=== PATIENT | female | born 1980 | race Caucasian/White ===

== ENCOUNTER 2017-06-05 21:38 | Emergency (ER) | payer MEDICAID ==
[2017-06-05] MEDS ORDERED: NS 1,000 ML IV ONE ×2 (21:45→22:31)
--- NOTE | 2017-06-05 21:49 | EDPHY ---
H & P Source: Patient, EMS Exam Limitations: No limitations HPI/ROS: CHIEF COMPLAINT: Anxiety, chest pain HISTORY OF PRESENT ILLNESS: Patient arrives by EMS and is seen at time of arrival. She complains of chest pain that started at 5:30 p.m.. This was with onset of an anxiety attack. She felt tachycardic, diaphoretic, spasms of the hands, tingling of the hands and around her lips. No shortness of breath. No recent fever or illness. No cough. No abdominal complaints. She says this is similar to previous incidence of anxiety reactions and sinus tachycardia. Symptoms lasted more than 2 hours, thus she was concerned and contacted EMS. Symptoms started to improve as they helped slow her breathing rate down and administered IV fluid. At time of examination she is feeling significantly better. She has minimal chest pain at this time. She is currently homeless. She has been seen by Cardiology and [facility] in the past. No other associated complaints or modifying factors. REVIEW OF SYSTEMS: Ten systems reviewed and are negative unless otherwise noted in the HPI PAST MEDICAL HISTORY: Sinus tachycardia, anxiety SOCIAL HISTORY: Nonsmoker. Currently homeless. FAMILY HISTORY: Noncontributory EXAMINATION General Appearance: Alert, no distress Head: normocephalic, atraumatic Eyes: Pupils equal and round, no conjunctival pallor or injection ENT, Mouth: Mucous membranes moist Neck: Normal inspection, supple, non-tender Respiratory: Lungs are clear to auscultation Cardiovascular: Tachycardic rate with regular rhythm. No murmur. Pulses intact distally in symmetrically. Gastrointestinal: Abdomen is soft and nontender Back: non-tender, no bony abnormalities Neurological: GCS 15. Cranial nerves 2-12 grossly intact. A&O, nonfocal, normal gait Skin: Warm and dry, no rash. No petechiae purpura. No lacerations or abrasions. Extremities: Nontender, no pedal edema Psychiatric: Mood and affect normal DIFFERENTIAL DIAGNOSES: Including but not limited to anxiety reaction, stress reaction, sinus tachycardia, ACS, pneumonia, bronchitis, dehydration, P MDM: 9:45 p.m. Reports of anxiety attack and chest pain. Chest pain did start at 5:30 p.m. and has been present ever since. Her pain is minimal at time of evaluation. She is mildly tachycardic but in no acute distress and otherwise hemodynamically stable. EKG and cardiac labs have been ordered. Suspect this is truly anxiety and the patient agrees with this. 10:30 p.m. Patient remains awake alert no acute distress. She continues to feel better. She remains mildly tachycardic at 105 beats per minute. This is after 1 L of fluid. Laboratory studies thus far negative with mild leukocytosis. Troponin is pending. I have ordered a D-dimer due to the tachycardia. 10:39 p.m. I have re-evaluated the patient. She remains mildly tachycardic but is feeling much better. She still feels anxious and has minimal chest pain. Chest x-ray is unremarkable. Troponin is negative. D-dimer is pending. I have ordered a L fluid and Ativan p.o.. 11:08 p.m. I have re-evaluated the patient. She continues to feel better. She has no chest pain at this time. She is resting comfortably and feeling minimally anxious. D-dimer is also negative. Troponin is sensitive as it was drawn greater than 4 hours post onset of pain. Clinically she fits the picture of anxiety. She also agrees with this. She will be discharged home stable condition. She will follow up with her established primary care physician and [facility] and contact [facility] as well. [facility] SUPERVISION: Patient was evaluated in conjunction with the supervising physician. Please see their note for details. (Danielito Ha) Constitutional: Initial Vital Signs Temperature (C) 36.6 C 06/05/17 21:50 Heart Rate 97 06/05/17 21:50 Respiratory Rate 16 06/05/17 21:50 Blood Pressure 117/79 06/05/17 21:50 O2 Sat (%) 99 06/05/17 21:50 O2 Delivery Mode Room Air Allergies/Adverse Reactions: atenolol Allergy (Verified 06/05/17 21:48) hydromorphone [From Dilaudid] Allergy (Verified 06/05/17 21:48) sulfamethoxazole [From Bactrim] Allergy (Verified 06/05/17 21:48) trimethoprim [From Bactrim] Allergy (Verified 06/05/17 21:48) Home Medications: Medication Instructions Recorded Hydroxyzine HCl 06/05/17 Ondansetron Odt [Zofran Odt 4 mg 4 mg PO Q4 PRN #10 tab 06/05/17 (*)] Promethazine HCl 06/05/17 Propranolol HCl 06/05/17 Medical Decision Making - Diagnostics EKG Interpretation: EKG: Complete interpretation has been separately recorded in the [facility] archive. Summary impression: Normal sinus rhythm (Marly Holliday) Imaging Results: Imaging Impressions Chest X-Ray 06/05/17 21:45 Impression: Normal chest x-ray. Other Provider: PHYSICIAN DOCUMENTATION: The patient was evaluated and managed by the [facility]. My co- signature indicates that I have reviewed this chart and I agree with the findings and plan of care as documented. I am the secondary supervising physician. (Marly Holliday) - Data Points Laboratory Results: Laboratory Results 06/05/17 21:59 06/05/17 21:59 06/05/17 06/05/17 06/05/17 21:59 21:59 21:59 WBC RBC Hgb Hct MCV MCH MCHC RDW Plt Count MPV Neut % (Auto) Lymph % (Auto) [place] % (Auto) Eos % (Auto) Baso % (Auto) Nucleat RBC Rel Count Absolute Neuts (auto) Absolute Lymphs (auto) Absolute Monos (auto) Absolute Eos (auto) Absolute Basos (auto) Absolute Nucleated RBC Immature Gran % Immature Gran # D-Dimer 0.28 ug/mLFEU ug/mLFEU (0.00-0.50) Sodium 141 mEq/L mEq/L (134-144) Potassium 4.0 mEq/L mEq/L (3.5-5.2) Chloride 106 mEq/L mEq/L (97-110) Carbon Dioxide 20 mEq/l L mEq/l (22-31) Anion Gap 15 mEq/L mEq/L (8-16) BUN 13 mg/dL mg/dL (7-23) Creatinine 0.8 mg/dL mg/dL (0.6-1.0) Estimated GFR > 60 Glucose 126 mg/dL H mg/dL (70-100) Calcium 9.5 mg/dL mg/dL (8.5-10.4) Troponin I < 0.012 ng/mL ng/mL (0-0.034) Lipase 208.0 IU/L IU/L (23-300) Beta HCG, Qual NEGATIVE 06/05/17 21:59 WBC 15.53 10^3/uL H 10^3/uL (3.80-9.50) RBC 5.01 10^6/uL 10^6/uL (4.18-5.33) Hgb 14.7 g/dL g/dL (12.6-16.3) Hct 43.1 % % (38.0-47.0) MCV 86.0 fL fL (81.5-99.8) MCH 29.3 pg pg (27.9-34.1) MCHC 34.1 g/dL g/dL (32.4-36.7) RDW 13.2 % % (11.5-15.2) Plt Count 395 10^3/uL 10^3/uL (150-400) MPV 9.4 fL fL (8.7-11.7) Neut % (Auto) 80.0 % H % (39.3-74.2) Lymph % (Auto) 12.2 % L % (15.0-45.0) [place] % (Auto) 6.2 % % (4.5-13.0) Eos % (Auto) 0.8 % % (0.6-7.6) Baso % (Auto) 0.3 % % (0.3-1.7) Nucleat RBC Rel Count 0.0 % % (0.0-0.2) Absolute Neuts (auto) 12.42 10^3/uL H 10^3/uL (1.70-6.50) Absolute Lymphs (auto) 1.90 10^3/uL 10^3/uL (1.00-3.00) Absolute Monos (auto) 0.97 10^3/uL H 10^3/uL (0.30-0.80) Absolute Eos (auto) 0.12 10^3/uL 10^3/uL (0.03-0.40) Absolute Basos (auto) 0.04 10^3/uL 10^3/uL (0.02-0.10) Absolute Nucleated RBC 0.00 10^3/uL 10^3/uL (0-0.01) Immature Gran % 0.5 % % (0.0-1.1) Immature Gran # 0.08 10^3/uL 10^3/uL (0.00-0.10) D-Dimer Sodium Potassium Chloride Carbon Dioxide Anion Gap BUN Creatinine Estimated GFR Glucose Calcium Troponin I Lipase Beta HCG, Qual Medications Given: Discontinued Medications Sodium Chloride (Ns) 1,000 mls @ 0 mls/hr IV ONCE ONE; Wide Open PRN Reason: Protocol Stop: 06/05/17 21:46 Last Admin: 06/05/17 22:05 Dose: 1,000 mls Sodium Chloride (Ns) 1,000 mls @ 0 mls/hr IV ONCE ONE; Wide Open PRN Reason: Protocol Stop: 06/05/17 22:32 Last Admin: 06/05/17 23:14 Dose: 1,000 mls Lorazepam (Ativan) 1 mg PO EDNOW ONE Stop: 06/05/17 22:40 Last Admin: 06/05/17 23:14 Dose: 1 mg Departure - Departure Disposition: Home, Routine, Self-Care Clinical Impression: Anxiety, Chest pain Condition: Good Instructions: Chest Pain (ED), Anxiety (ED), Anxiolysis in Adults (ED) Additional Instructions: 1. Contact primary care physician for follow-up this week 2. Return to the ER for any return of chest pain Referrals: Patient,NotPresent [Unknown] - As per Instructions [facility] [Clinic] - As per Instructions Mary Wilkes MD [Doctor of Osteopathy] - As per Instructions Prescriptions: Ondansetron Odt [Zofran Odt 4 mg (*)] 4 mg PO Q4 PRN #10 tab PRN Reason: Nausea/Vomiting, Can'T Take Po
[2017-06-05 21:54] VITALS: RESP 16
--- NOTE | 2017-06-05 21:54 | CPEKG ---
Heart Rate: 105 RR Interval: 571 P-R Interval: 136 QRSD Interval: 78 QT Interval: 356 QTC Interval: 471 P [place]: 49 QRS [place]: 45 T Wave [place]: -13 EKG Severity - BORDERLINE ECG - EKG Impression: SINUS TACHYCARDIA EKG Impression: INFERIOR Q WAVES, PROBABLY NORMAL VARIATION EKG Impression: BORDERLINE T ABNORMALITIES, INFERIOR LEADS Electronically Signed By: Chris Gomez 06-Jun-2017 07:47:19
[2017-06-05 22:05] LABS: % IMMATURE GRANULYOCYTES 0.5 % (0.0-1.1); ABSOLUTE IMMATURE GRANULOCYTES 0.08 10^3/uL (0.00-0.10); ADD DIFF? NO; ADD MORPH? NO; ADD SCAN? NO; ATYPICAL LYMPHOCYTE FLAG 10 (0-99); FRAGMENT RBC FLAG 0 (0-99); HEMATOCRIT 43.1 % (38.0-47.0); HEMOGLOBIN 14.7 g/dL (12.6-16.3); LEFT SHIFT FLG 0 (0-99); LIPEMIA HEMOLYSIS FLAG 90 (0-99); MEAN CELL HEMOGLOBIN 29.3 pg (27.9-34.1); MEAN CELL HEMOGLOBIN CONCENTR. 34.1 g/dL (32.4-36.7); MEAN PLATELET VOLUME 9.4 fL (8.7-11.7); PLATELET CLUMPS FLAG 0 (0-99); PLATELET COUNT 395 10^3/uL (150-400); RED BLOOD CELL COUNT 5.01 10^6/uL (4.18-5.33); RED CELL DISTRIBUTION WIDTH 13.2 % (11.5-15.2)
[2017-06-05 22:23] LABS: ANION GAP 15 mEq/L (8-16); CALCIUM 9.5 mg/dL (8.5-10.4); CARBON DIOXIDE 20 mEq/l (22-31); CHLORIDE 106 mEq/L (97-110); CREATININE 0.8 mg/dL (0.6-1.0); GLOMERULAR FILTRATION RATE > 60; GLUCOSE 126 mg/dL (70-100); SODIUM 141 mEq/L (134-144)
[2017-06-05 22:34] LABS: TROPONIN I < 0.012 ng/mL (0-0.034)
[2017-06-05] MEDS ORDERED: LORazepam 1 MG TAB PO ONE (22:39)
[2017-06-05 23:46] VITALS: BP 123/93; PULSE 118; TEMP 98.2; O2SAT 94
== END 2017-06-05 23:40 | disposition home or self-care (01) ==
LOC: EDUNIT#
DX: R07.9 Chest pain, unspecified (principal); F41.9 Anxiety disorder, unspecified; E86.9 Volume depletion, unspecified

== ENCOUNTER 2017-07-22 16:45 | Emergency (ER) | payer MEDICAID ==
--- NOTE | 2017-07-22 16:46 | EDPHY ---
H & P Time Seen by Provider: 07/22/17 16:46 HPI/ROS: CHIEF COMPLAINT: Right-sided abdominal pain, painful urination HISTORY OF PRESENT ILLNESS: The patient is a 37 y/o female arriving via EMS with right-sided abdominal pain and painful urination. For the past week she had painful urination and does not feel like she is emptying her bladder; she has also noticed a darker color to her urine. She unsuccessfully attempted to alleviate her symptoms with Azo and cranberry juice. She has had intermittent vomiting the past week. However, she has not had emesis since 11:00 this morning (6 hours ago). She was able to urinate 20 minutes ago. Denies history of kidney stones. No vaginal discharge. REVIEW OF SYSTEMS: A ten point review of systems was performed and is negative with the exception of the items mentioned in the HPI. Past medical history: Generalized anxiety Interstitial cystitis GERD PTSD Chronic low back pain Past surgical history: Hysterectomy Left oophorectomy Social history: Service dog at bedside Lives in [place], homeless No cigarette or alcohol use General Appearance: Alert. Vital signs reviewed. Eyes: Pupils equal and round, no conjunctival injection, no discharge. Anicteric. ENT, Mouth: Mucous membranes are moist, no oropharyngeal erythema or edema. Neck: No lymphadenopathy, supple. Respiratory: Lungs are clear to auscultation; no wheezes, rales, or rhonchi. Cardiovascular: Regular rate and rhythm; no murmur, rub, or gallop. Gastrointestinal: Suprapubic and RLQ tenderness. Otherwise abdomen is soft and nontender, no masses or organomegaly, bowel sounds normal. Skin: Warm and dry, no rashes on exposed skin, normal color. Back: Nontender to palpation over the thoracolumbar spine. No CVAT. Extremities: No lower extremity edema, no calf tenderness or swelling. Neurological: Alert and oriented. Moving all four extremities easily and equally. Psychiatric: Normal affect. - Medical/Surgical History Hx Asthma: No Hx Chronic Respiratory Disease: No Hx Diabetes: No Hx Cardiac Disease: No Hx Renal Disease: No Hx Cirrhosis: No Hx Alcoholism: No Hx HIV/AIDS: No Hx Splenectomy or Spleen Trauma: No Other PMH: PTSD, anxiety, depression, endometrioma, sinus tachycardia - Social History Smoking Status: Never smoked Constitutional: Initial Vital Signs Temperature (C) 36.6 C 07/22/17 16:48 Heart Rate 99 09/03/17 16:48 Respiratory Rate 16 07/22/17 16:48 Blood Pressure 129/82 H 07/22/17 16:48 O2 Sat (%) 99 07/22/17 16:48 O2 Delivery Mode Room Air Allergies/Adverse Reactions: atenolol Allergy (Verified 06/05/17 21:48) hydromorphone [From Dilaudid] Allergy (Verified 06/05/17 21:48) sulfamethoxazole [From Bactrim] Allergy (Verified 06/05/17 21:48) trimethoprim [From Bactrim] Allergy (Verified 06/05/17 21:48) Home Medications: Medication Instructions Recorded Hydroxyzine HCl 06/05/17 Ondansetron Odt [Zofran Odt 4 mg 4 mg PO Q4 PRN #10 tab 06/05/17 (*)] Promethazine HCl 06/05/17 Propranolol HCl 06/05/17 Cephalexin [Keflex] 500 mg PO BID #10 cap 07/22/17 Medical Decision Making ED Course/Re-evaluation: The patient is a 37 y/o female who presents with suprapubic and RLQ tenderness. For the past week she has had dysuria and does not feel like she is completely emptying while urinating. 1730:She received zofran and toradol iv plus a liter of iv ns. Reassessed patient and discussed positive UTI results. She is still in a fair amount of pain. Plan on 1g IV Rocephin. 1800: Reassessed patient. She is feeling somewhat better but still has some right-sided pain. On reexamination she does not have costovertebral angle tenderness. She is afebrile. She has mild right lower quadrant abdominal tenderness, no guarding. She feels the urge to urinate again. 6:20 p.m.. Patient is now feeling better. After emptying her bladder she had significant pain relief. She has also been given a dose of Tylenol 650 mg. she will be staying at the long-term [facility]. She is advised to complete the prescribed antibiotics and continue with the azo for pain with urination. I do not suspect appendicitis. I do not think that her pain is likely to be due to ovarian pathology. She is not . Her symptoms have improved while in the ED and I feel that she is safe for discharge and oral antibiotics. I do not think that she has upper tract infection. Differential Diagnosis: I considered a ddx including but not limited to musculoskeletal causes, kidney stone, pyelonephritis, shingles, and intra-abdominal causes such as diverticulitis and appendicitis. - Data Points Laboratory Results: Laboratory Results 07/22/17 17:00 07/22/17 17:00 Microbiology Results: MICROBIOLOGY 07/22/17 Unknown Urine,Clean Catch Urine Culture - Preliminary Escherichia Coli Three [place] Types Medications Given: Discontinued Medications Acetaminophen (Tylenol) 650 mg PO EDNOW ONE Stop: 07/22/17 18:17 Last Admin: 07/22/17 18:26 Dose: 650 mg Sodium Chloride (Ns) 1,000 mls @ 0 mls/hr IV ONCE ONE; Wide Open PRN Reason: Protocol Stop: 07/22/17 16:54 Last Admin: 07/22/17 17:13 Dose: 1,000 mls Ceftriaxone Sodium/Dextrose (Rocephin 1 Gm (Premix)) 50 mls @ 100 mls/hr IV EDNOW ONE PRN Reason: Protocol Stop: 07/22/17 18:01 Last Admin: 07/22/17 17:43 Dose: 50 mls Ketorolac Tromethamine (Toradol) 15 mg IVP EDNOW ONE Stop: 07/22/17 17:24 Last Admin: 07/22/17 17:30 Dose: 15 mg Ondansetron HCl (Zofran) 4 mg IVP EDNOW ONE Stop: 07/22/17 16:54 Last Admin: 07/22/17 17:13 Dose: 4 mg Departure - Departure Disposition: Home, Routine, Self-Care Clinical Impression: Urinary tract infection Qualifiers: Urinary tract infection type: acute cystitis Hematuria presence: without hematuria Qualified Code(s): N30.00 - Acute cystitis without hematuria Condition: Good Instructions: Cephalexin (By mouth), Urinary Tract Infection in Women (ED) Additional Instructions: 1. Take Keflex as prescribed for your urinary tract infection. Make sure to complete the entire dose even if you start to feel better. 2. Follow up with your primary care provider within the next week for unimproved symptoms 3. Return to the ED if you experience fever, chest pain, worsening abdominal pain, numbness, weakness, or other worsening of your symptoms. Referrals: Patient,NotPresent [Primary Care Provider] - As per Instructions Prescriptions: Cephalexin [Keflex] 500 mg PO BID #10 cap Report Scribed for: Misty Francisco Report Scribed by: Zee Denise Date of Report: 07/22/17 Time of Report: 17:04 Physician Review and Approval Statement: 07/22/17 16:46 Portions of this note were transcribed by the medical collections representative. I, Dr. Misty Francisco, personally performed the history, physical exam, and medical decision- making; and confirmed the accuracy of the information in the transcribed note.
[2017-07-22] MEDS ORDERED: NS 1,000 ML IV ONE (16:53)
[2017-07-22] MEDS ORDERED: ONDANSETRON 4 MG/2 ML VIAL IVP ONE (16:53)
[2017-07-22 17:09] LABS: % IMMATURE GRANULYOCYTES 0.4 % (0.0-1.1); ABSOLUTE IMMATURE GRANULOCYTES 0.04 10^3/uL (0.00-0.10); ADD DIFF? NO; ADD MORPH? NO; ADD SCAN? NO; ATYPICAL LYMPHOCYTE FLAG 20 (0-99); FRAGMENT RBC FLAG 0 (0-99); HEMATOCRIT 39.2 % (38.0-47.0); HEMOGLOBIN 12.7 g/dL (12.6-16.3); LEFT SHIFT FLG 0 (0-99); LIPEMIA HEMOLYSIS FLAG 80 (0-99); MEAN CELL HEMOGLOBIN 28.4 pg (27.9-34.1); MEAN CELL HEMOGLOBIN CONCENTR. 32.4 g/dL (32.4-36.7); MEAN CELL VOLUME 87.7 fL (81.5-99.8); MEAN PLATELET VOLUME 8.8 fL (8.7-11.7); PLATELET CLUMPS FLAG 40 (0-99); PLATELET COUNT 413 10^3/uL (150-400); RED BLOOD CELL COUNT 4.47 10^6/uL (4.18-5.33)
[2017-07-22 17:19] LABS: COLOR AMBER; LEUKOCYTE ESTERASE,URINE NEGATIVE (NEGATIVE); NITRITE,URINE POSITIVE (NEGATIVE)
[2017-07-22] MEDS ORDERED: KETOROLAC 15 MG/1 ML SDV IVP ONE (17:23)
[2017-07-22 17:24] LABS: BACTERIA 3+ /hpf (NONE SEEN); MUCUS 2+ /lpf (NONE-1+); WBC,URINE 50-182 /hpf (0-3)
[2017-07-22 17:33] LABS: ANION GAP 18 mEq/L (8-16); CALCIUM 9.2 mg/dL (8.5-10.4); CARBON DIOXIDE 21 mEq/l (22-31); CHLORIDE 105 mEq/L (97-110); CREATININE 0.9 mg/dL (0.6-1.0); GLOMERULAR FILTRATION RATE > 60; GLUCOSE 94 mg/dL (70-100); SODIUM 144 mEq/L (134-144)
[2017-07-22] MEDS ORDERED: ACETAMINOPHEN 325 MG TAB PO ONE (18:16)
--- NOTE | 2017-07-22 19:17 | ASMTCMCOM ---
CM Note CM Note Notes: Patient brought to ED via EMS and discharged back to homeless nursing home. Patient is currently in their First Step program and about to enter their Transitions program. Patient has a support dog, a small pug. Patient also has several bags, backpacks, and a walker. Patient hopes to get an apartment soon. Patient follows up with [facility] and will make an appointment tomorrow. Patient provided a cab to the nursing home because Medicaid's [employer] ride service is not running at this time. Date Signed: 07/22/2017 07:17 PM Electronically Signed By:Sandy Galaviz
[2017-07-22 19:27] VITALS: BP 107/71; PULSE 97; RESP 20; TEMP 98.2; O2SAT 96
== END 2017-07-22 19:27 | disposition home or self-care (01) ==
LOC: EDUNIT#
DX: N30.00 Acute cystitis without hematuria (principal); B96.20 Unspecified Escherichia coli [E. coli] as the cause of diseases classified elsewhere; E86.9 Volume depletion, unspecified; Z90.710 Acquired absence of both cervix and uterus
CPT/HCPCS: 96365; J0696; J1885; J2405

== ENCOUNTER 2017-11-03 12:39 | Emergency (ER) | payer MEDICAID ==
[2017-11-03 12:50] VITALS: RESP 18; TEMP 98.1
[2017-11-03] MEDS ORDERED: ONDANSETRON 4 MG/2 ML VIAL IVP ONE (14:23)
[2017-11-03] MEDS ORDERED: NS 1,000 ML IV ONE ×2 (14:23→16:11)
--- NOTE | 2017-11-03 14:25 | EDPHY ---
H & P Stated Complaint: Cough, Nausea, Vomiting, Diarrhea, Roomate has FLU Time Seen by Provider: 11/03/17 14:18 HPI/ROS: CHIEF COMPLAINT: Vomiting and diarrhea HISTORY OF PRESENT ILLNESS: The patient is a 37-year-old female with a history of chronic tachycardia, PTSD and anxiety who comes to the emergency department complaining of nausea, vomiting and diarrhea that began this morning. She states that 1 of her roommates was diagnosed with a stomach flu and has similar symptoms yesterday. She has not had a fever. No shortness of breath. No abdominal pain. No blood in her vomit or stool. REVIEW OF SYSTEMS: Constitutional: denies: chills, fever, recent illness, recent injury EENTM: denies: blurred vision, double vision, nose congestion Respiratory: denies: cough, shortness of breath Cardiac: denies: chest pain, irregular heart rate, lightheadedness, palpitations Gastrointestinal/Abdominal: See HPI Genitourinary: denies: dysuria, frequency, hematuria, pain Musculoskeletal: denies: joint pain, muscle pain Skin: denies: lesions, rash, jaundice, bruising Neurological: denies: headache, numbness, paresthesia, tingling, dizziness, weakness Hematologic/Lymphatic: denies: blood clots, easy bleeding, easy bruising Immunologic/allergic: denies: HIV/AIDS, transplant EXAM: GENERAL: Well-appearing, well-nourished and in no acute distress. HEAD: Atraumatic, normocephalic. EYES: Pupils equal round and reactive to light, extraocular movements intact, sclera anicteric, conjunctiva are normal. ENT: TMs normal, nares patent, oropharynx clear without exudates. Moist mucous membranes. NECK: Normal range of motion, supple without lymphadenopathy or JVD. LUNGS: Breath sounds clear to auscultation bilaterally and equal. No wheezes rales or rhonchi. HEART: Regular rate and rhythm without murmurs, rubs or gallops. ABDOMEN: Soft, nontender, normoactive bowel sounds. No guarding, no rebound. No masses appreciated. BACK: No CVA tenderness, no spinal tenderness, step-offs or deformities EXTREMITIES: Normal range of motion, no pitting or edema. No clubbing or cyanosis. NEUROLOGICAL: Cranial nerves II through XII grossly intact. Normal speech, normal gait. 5/5 strength, normal movement in all extremities, normal sensation PSYCH: Normal mood, normal affect. SKIN: Warm, dry, normal turgor, no visible rashes or lesions. Source: Patient Exam Limitations: No limitations - Personal History LMP (Females 10-55): Hysterectomy Current Tetanus Diphtheria and Acellular Pertussis (TDAP): Yes - Medical/Surgical History Hx Asthma: No Hx Chronic Respiratory Disease: No Hx Diabetes: No Hx Cardiac Disease: No Hx Renal Disease: No Hx Cirrhosis: No Hx Alcoholism: No Hx HIV/AIDS: No Hx Splenectomy or Spleen Trauma: No Other PMH: PTSD, anxiety, depression, endometrioma, sinus tachycardia - Family History Significant Family History: No pertinent family hx - Social History Smoking Status: Never smoked Alcohol Use: Sober Drug Use: None Constitutional: Initial Vital Signs Temperature (C) 36.7 C 11/03/17 12:48 Heart Rate 120 H 11/03/17 12:48 Respiratory Rate 18 11/03/17 12:48 Blood Pressure 128/97 H 11/03/17 12:48 O2 Sat (%) 94 11/03/17 12:48 O2 Delivery Mode Room Air Allergies/Adverse Reactions: atenolol Allergy (Verified 11/03/17 12:48) hydromorphone [From Dilaudid] Allergy (Verified 11/03/17 12:48) sulfamethoxazole [From Bactrim] Allergy (Verified 11/03/17 12:48) trimethoprim [From Bactrim] Allergy (Verified 11/03/17 12:48) Home Medications: Medication Instructions Recorded Hydroxyzine HCl 06/05/17 Ondansetron Odt [Zofran Odt 4 mg 4 mg PO Q4 PRN #10 tab 06/05/17 (*)] Promethazine HCl 06/05/17 Propranolol HCl 06/05/17 Cephalexin [Keflex] 500 mg PO BID #10 cap 07/22/17 Ondansetron Odt [Zofran Odt 4 mg 4 mg PO Q4 PRN #20 tab 11/03/17 (RX)] Medical Decision Making - Diagnostics EKG Interpretation: An EKG obtained and was read and documented in trace view. Please see trace view for full reading and report. Sinus tachycardia, no acute ischemic changes , similar to previous ED Course/Re-evaluation: 3:30 p.m. the patient is feeling much better. We will continue to hydrate. Her heart rate is improving. She has not vomited again since receiving Zofran. 4:20 p.m. the patient is doing much better. Her heart rate is improved. She has not had any more GI symptoms. She wishes to go home. We will finish the IV fluids running and allow her to be discharged. We discussed indications for returning. Her abdomen remains benign. Differential Diagnosis: Partial list of the Differential diagnosis considered include but were not limited to; gastritis, food poisoning, chronic back pain, tachycardia and although unlikely based on the history and physical exam, I also considered sepsis, pneumonia, appendicitis, diverticulitis, obstruction, ovarian cyst, ovarian torsion, urinary tract infection. I discussed these differential diagnoses and the plan with the patient as well as the usual and expected course. The patient understands that the diagnosis is provisional and that in medicine we are not always correct and that further workup is often warranted. Usual and customary warnings were given. All of the patient's questions were answered. The patient was instructed to return to the emergency department should the symptoms at all worsen or return, otherwise to followup with the physician as we discussed. - Data Points Laboratory Results: Laboratory Results 11/03/17 13:00 11/03/17 13:00 11/03/17 11/03/17 11/03/17 13:00 13:00 13:00 WBC 14.14 10^3/uL H 10^3/uL (3.80-9.50) RBC 5.08 10^6/uL 10^6/uL (4.18-5.33) Hgb 14.8 g/dL g/dL (12.6-16.3) Hct 44.1 % % (38.0-47.0) MCV 86.8 fL fL (81.5-99.8) MCH 29.1 pg pg (27.9-34.1) MCHC 33.6 g/dL g/dL (32.4-36.7) RDW 13.1 % % (11.5-15.2) Plt Count 371 10^3/uL 10^3/uL (150-400) MPV 9.2 fL fL (8.7-11.7) Neut % (Auto) 85.7 % H % (39.3-74.2) Lymph % (Auto) 6.3 % L % (15.0-45.0) [place] % (Auto) 6.5 % % (4.5-13.0) Eos % (Auto) 0.9 % % (0.6-7.6) Baso % (Auto) 0.2 % L % (0.3-1.7) Nucleat RBC Rel Count 0.0 % % (0.0-0.2) Absolute Neuts (auto) 12.11 10^3/uL H 10^3/uL (1.70-6.50) Absolute Lymphs (auto) 0.89 10^3/uL L 10^3/uL (1.00-3.00) Absolute Monos (auto) 0.92 10^3/uL H 10^3/uL (0.30-0.80) Absolute Eos (auto) 0.13 10^3/uL 10^3/uL (0.03-0.40) Absolute Basos (auto) 0.03 10^3/uL 10^3/uL (0.02-0.10) Absolute Nucleated RBC 0.00 10^3/uL 10^3/uL (0-0.01) Immature Gran % 0.4 % % (0.0-1.1) Immature Gran # 0.06 10^3/uL 10^3/uL (0.00-0.10) Sodium 140 mEq/L mEq/L (134-144) Potassium 4.8 mEq/L mEq/L (3.5-5.2) Chloride 103 mEq/L mEq/L (97-110) Carbon Dioxide 25 mEq/l mEq/l (22-31) Anion Gap 12 mEq/L mEq/L (8-16) BUN 16 mg/dL mg/dL (7-23) Creatinine 0.8 mg/dL mg/dL (0.6-1.0) Estimated GFR > 60 Glucose 94 mg/dL mg/dL (70-100) Calcium 9.4 mg/dL mg/dL (8.5-10.4) Beta HCG, Qual NEGATIVE Medications Given: Discontinued Medications Sodium Chloride (Ns) 1,000 mls @ 0 mls/hr IV EDNOW ONE; Wide Open PRN Reason: Protocol Stop: 11/03/17 14:24 Last Admin: 11/03/17 14:33 Dose: 1,000 mls Sodium Chloride (Ns) 1,000 mls @ 0 mls/hr IV ONCE ONE PRN Reason: Wide Open Stop: 11/03/17 16:12 Last Admin: 11/03/17 16:13 Dose: 1,000 mls Ondansetron HCl (Zofran) 4 mg IVP EDNOW ONE Stop: 11/03/17 14:24 Last Admin: 11/03/17 14:33 Dose: 4 mg Departure - Departure Disposition: Home, Routine, Self-Care Clinical Impression: Vomiting and diarrhea Condition: Fair Instructions: Acute Nausea and Vomiting (ED) Referrals: Patient,NotPresent [Unknown] - As per Instructions [facility],. [Clinic] - As per Instructions Prescriptions: Ondansetron Odt [Zofran Odt 4 mg (RX)] 4 mg PO Q4 PRN #20 tab PRN Reason: Nausea & Vomiting
[2017-11-03 14:30] LABS: % IMMATURE GRANULYOCYTES 0.4 % (0.0-1.1); ABSOLUTE IMMATURE GRANULOCYTES 0.06 10^3/uL (0.00-0.10); ADD DIFF? NO; ADD MORPH? NO; ADD SCAN? NO; ATYPICAL LYMPHOCYTE FLAG 0 (0-99); FRAGMENT RBC FLAG 0 (0-99); HEMATOCRIT 44.1 % (38.0-47.0); HEMOGLOBIN 14.8 g/dL (12.6-16.3); LEFT SHIFT FLG 0 (0-99); LIPEMIA HEMOLYSIS FLAG 80 (0-99); MEAN CELL HEMOGLOBIN 29.1 pg (27.9-34.1); MEAN CELL HEMOGLOBIN CONCENTR. 33.6 g/dL (32.4-36.7); MEAN CELL VOLUME 86.8 fL (81.5-99.8); MEAN PLATELET VOLUME 9.2 fL (8.7-11.7); PLATELET CLUMPS FLAG 0 (0-99); PLATELET COUNT 371 10^3/uL (150-400); RED BLOOD CELL COUNT 5.08 10^6/uL (4.18-5.33); RED CELL DISTRIBUTION WIDTH 13.1 % (11.5-15.2)
[2017-11-03 14:39] LABS: ANION GAP 12 mEq/L (8-16); CALCIUM 9.4 mg/dL (8.5-10.4); CARBON DIOXIDE 25 mEq/l (22-31); CHLORIDE 103 mEq/L (97-110); CREATININE 0.8 mg/dL (0.6-1.0); GLOMERULAR FILTRATION RATE > 60; GLUCOSE 94 mg/dL (70-100); POTASSIUM 4.8 mEq/L (3.5-5.2); SODIUM 140 mEq/L (134-144)
--- NOTE | 2017-11-03 14:41 | CPEKG ---
Heart Rate: 119 RR Interval: 504 P-R Interval: 136 QRSD Interval: 68 QT Interval: 340 QTC Interval: 479 P [place]: 49 QRS [place]: 59 T Wave [place]: 14 EKG Severity - BORDERLINE ECG - EKG Impression: SINUS TACHYCARDIA EKG Impression: BORDERLINE T ABNORMALITIES, ANTERIOR LEADS Electronically Signed By: Kayode Carlos 03-Nov-2017 14:43:58
[2017-11-03] MEDS ORDERED: KETOROLAC 15 MG/1 ML SDV ONE (15:59)
[2017-11-03] MEDS ORDERED: ONDANSETRON 4 MG/2 ML VIAL ONE (15:59)
[2017-11-03 16:12] VITALS: BP 120/66
[2017-11-03] MEDS ORDERED: ONDANSETRON 4MG PREPACK#2 BTL TAKEHOME ONE (17:10)
--- NOTE | 2017-11-03 17:16 | ASMTCMCOM ---
CM Note CM Note Notes: Spoke with patient and she says she plans on following up with her provider at the [facility] ([facility] this upcoming week. Patient has been staying at the group home. Patient has a support dog, a small pug. Patient has a cart, multiple bags and various other items. Patient requesting assistance getting back to the group home; Medicaid cab arranged through [employer]; confirmation # provided to the patient. CM available for further assistance. Date Signed: 11/03/2017 05:15 PM Electronically Signed By:Sandy Galaviz RN
--- NOTE | 2017-11-03 17:19 | ASDISCHSUM ---
Discharge Information Plan Status:Homeless/[facility] Medically Cleared to Leave: Discharge Date: CM D/C Disposition:Streets (Homeless) ADT D/C Disposition:Home, Routine, Self-Care Projected Discharge Date: Transportation at D/C:Medicaid Transportation Discharge Delay Reason: Follow-Up Date: Discharge Slot: Final Diagnosis: Placement Information Patient Contact Information Contact Name:GIRISHARSLAN Relationship: Address: Home Phone: Work Phone: City: Alternate Phone: State/Zip Code: Email: Financial Information Financial Class: Primary Plan Desc:MEDICAID HEALTH FIRST CHIEF OF SAFETY AND PROTECTION Primary Plan Number:[id number] Secondary Plan Desc: Secondary Plan Number: Assessment Information [facility] CM Progress Note CM Note CM Note Notes: Spoke with patient and she says she plans on following up with her provider at the [facility] ([facility]) this upcoming week. [facility] Patient has a support dog, a small pug. Patient has a cart, multiple bags and various other items. Patient requesting assistance getting back to the jail; Medicaid cab arranged through [employer]; confirmation # provided to the patient. CM available for further assistance. Date Signed: 11/03/2017 05:15 PM Electronically Signed By:Sandy Galaviz RN LACE LACE Acuity / Level of Care Answers: No. Emergency dept visits in Answers: 3 last 6 months Score: 3 Date Signed: 11/03/2017 05:17 PM Electronically Signed By:Sandy Galaviz RN Intervention Information Intervention Type:Transportation Date of Service:11/03/2017 05:17 PM Patient Type:Emergency Room Staff Member:BANDAR Galaviz [place] Hours:0.25 Discipline:Layout Technician Severity: Comment:Arranged for Medicaid cab through [employer] .
[2017-11-03 17:22] VITALS: PULSE 84; O2SAT 94
== END 2017-11-03 17:20 | disposition home or self-care (01) ==
LOC: EDUNIT#
DX: R11.10 Vomiting, unspecified (principal); R19.7 Diarrhea, unspecified; E86.9 Volume depletion, unspecified
CPT/HCPCS: 96374; J1885; J2405

== ENCOUNTER 2019-01-14 02:31 | Emergency (ER) | payer MEDICAID ==
--- NOTE | 2019-01-14 02:40 | EDPHY ---
H & P Stated Complaint: anxiety Time Seen by Provider: 01/14/19 02:33 HPI/ROS: HPI The patient presents with altered mental status from [facility], brought in by ambulance. She had been there throughout the day today. She was being seen for anxiety. She had a negative breathalyzer test and drug screen positive for TCAs?. Just after midnight she took Seroquel, Flexeril, gabapentin. Then over the next several hours she became more sedate than usual. Here, she is saying that she is feeling anxious. She reports mild chest pain. She has been seen in our ED many times for chest pain, anxiety, tachycardia.. REVIEW OF SYSTEMS 10 systems were reviewed and negative with the exception of the elements mentioned in the history of present illness. PMHx: Reported PTSD, generalized anxiety disorder, possible postural orthostatic tachycardia syndrome Soc Hx: Homeless, denies drug or alcohol use FHx: PHYSICAL General Appearance: Tired appearing, no distress Eyes: Pupils equal and round no pallor or injection ENT, Mouth: Mucous membranes moist Respiratory: There are no retractions, lungs are clear to auscultation Cardiovascular: Regular rate and rhythm Gastrointestinal: Abdomen is soft and non-tender, no masses, bowel sounds normal Neurological: A&O, moves all extremities Skin: Warm and dry, no rashes Musculoskeletal: Neck is supple non tender Extremities: symmetrical, full range of motion Psychiatric: Patient is oriented X 3, there is no agitation Source: Patient, EMS, Old records Exam Limitations: No limitations - Medical/Surgical History Hx Asthma: No Hx Chronic Respiratory Disease: No Hx Diabetes: No Hx Cardiac Disease: No Hx Renal Disease: No Hx Cirrhosis: No Hx Alcoholism: No Hx HIV/AIDS: No Hx Splenectomy or Spleen Trauma: No Other PMH: PTSD, anxiety, depression, endometrioma, sinus tachycardia - Social History Smoking Status: Never smoked Constitutional: Initial Vital Signs Temperature (C) 36.7 C 01/14/19 02:35 Heart Rate 98 01/14/19 02:35 Respiratory Rate 16 01/14/19 02:35 Blood Pressure 138/108 H 01/14/19 02:35 O2 Sat (%) 95 01/14/19 02:35 O2 Delivery Mode Room Air Allergies/Adverse Reactions: atenolol Allergy (Verified 01/14/19 02:45) hydromorphone [From Dilaudid] Allergy (Verified 01/14/19 02:45) sulfamethoxazole [From Bactrim] Allergy (Verified 01/14/19 02:45) trimethoprim [From Bactrim] Allergy (Verified 01/14/19 02:45) Home Medications: Medication Instructions Recorded Hydroxyzine HCl 06/05/17 Ondansetron Odt [Zofran Odt 4 mg 4 mg PO Q4 PRN #10 tab 06/05/17 (*)] Promethazine HCl 06/05/17 Propranolol HCl 06/05/17 Cephalexin [Keflex] 500 mg PO BID #10 cap 07/22/17 Ondansetron Odt [Zofran Odt 4 mg 4 mg PO Q4 PRN #20 tab 11/03/17 (RX)] Bupropion HCl [Wellbutrin Xl] 300 mg PO 01/14/19 Cyclobenzaprine [Flexeril 10 MG 10 mg PO 01/14/19 (*)] Fludrocortisone Acetate [Florinef 0.1 mg PO DAILY 01/14/19 0.1 MG (RX)] Gabapentin 800 mg PO 01/14/19 QUEtiapine FUMARATE [Seroquel 25 25 mg PO BID 01/14/19 mg (*)] Medical Decision Making Differential Diagnosis: 38-year-old female brought in by ambulance from the [facility] for increased sedation. Patient took multiple sedating medications, Seroquel, Flexeril, gabapentin earlier in the night and I feel these are likely contributing to her symptoms. Plan to observe her here in the emergency department for now. The patient was observed for several hours. She became more awake and alert was asymptomatic. She is able to eat and drink without difficulty. I strongly suspect her symptoms are related to her medications. I have considered electrolyte disturbance, dehydration, however I feel these are less likely. She will be discharged back to the [facility]. - Data Points Medications Given: Discontinued Medications Ondansetron HCl (Zofran Odt) 4 mg PO EDNOW ONE Stop: 01/14/19 04:47 Last Admin: 01/14/19 04:51 Dose: 4 mg Departure - Departure Disposition: Home, Routine, Self-Care Clinical Impression: Weakness, Anxiety Condition: Good Instructions: Anxiety (ED) Additional Instructions: Please return to the emergency department if your worse in any way. Referrals: [facility],. [Clinic] - As per Instructions
[2019-01-14] MEDS ORDERED: ONDANSETRON DISINTEGRATING 4 MG TAB PO ONE (04:46)
[2019-01-14 06:17] VITALS: BP 139/92
== END 2019-01-14 06:15 | disposition home or self-care (01) ==
LOC: EDUNIT#
DX: R53.1 Weakness (principal); F41.9 Anxiety disorder, unspecified; F32.9 Major depressive disorder, single episode, unspecified; F43.10 Post-traumatic stress disorder, unspecified; Z59.0 Homelessness

== ENCOUNTER 2019-01-14 17:56 | Emergency (ER) | payer MEDICAID ==
--- NOTE | 2019-01-14 18:29 | EDPHY ---
H & P Stated Complaint: M1 Source: Patient, EMS, Old records Exam Limitations: Clinical condition - Medical/Surgical History Hx Asthma: No Hx Chronic Respiratory Disease: No Hx Diabetes: No Hx Cardiac Disease: No Hx Renal Disease: No Hx Cirrhosis: No Hx Alcoholism: No Hx HIV/AIDS: No Hx Splenectomy or Spleen Trauma: No Other PMH: PTSD, anxiety, depression, endometrioma, sinus tachycardia - Family History Significant Family History: No pertinent family hx - Social History Smoking Status: Never smoked Alcohol Use: Sober Time Seen by Provider: 01/14/19 18:18 HPI/ROS: CHIEF COMPLAINT: Manic HISTORY OF PRESENT ILLNESS: The patient is a 38-year-old female who was [facility] the [facility]. She was evaluated there. She has a history of PTSD, anxiety and possibly schizophrenia. She denies suicidality homicidality. She was seen here early this morning and discharged to the mental health center. It seems as though she may have been mistakenly taken to the alcohol recovery [facility]. [facility] states that she has been there all day is not improving and is very paranoid and speaking rapidly. She was evaluated there and they want to place her and have placed on an M1 hold for grave disability. They sent her here for medical clearance. The patient states that she falls frequently infrequently hits her head and that this is part of her PTSD. She is requesting an MRI. Severity: Severe Modifying factors: None REVIEW OF SYSTEMS: Constitutional: denies: chills, fever, recent illness, recent injury EENTM: denies: blurred vision, double vision, nose congestion Respiratory: denies: cough, shortness of breath Cardiac: denies: chest pain, irregular heart rate, lightheadedness, palpitations Gastrointestinal/Abdominal: denies: abdominal pain, diarrhea, nausea, vomiting, blood streaked stools Genitourinary: denies: dysuria, frequency, hematuria, pain Musculoskeletal: denies: joint pain, muscle pain Skin: denies: lesions, rash, jaundice, bruising Neurological: Pressured speech see above denies: headache, numbness, paresthesia, tingling, dizziness, weakness Hematologic/Lymphatic: denies: blood clots, easy bleeding, easy bruising Immunologic/allergic: denies: HIV/AIDS, transplant 10 systems reviewed and negative except as noted EXAM: GENERAL: Moderate distress, rapid speech. Alert HEAD: Atraumatic, normocephalic. EYES: Pupils equal round and reactive to light, extraocular movements intact, sclera anicteric, conjunctiva are normal. ENT: TMs normal, nares patent, oropharynx clear without exudates. Moist mucous membranes. NECK: Normal range of motion, supple without lymphadenopathy or JVD. LUNGS: Breath sounds clear to auscultation bilaterally and equal. No wheezes rales or rhonchi. HEART: Regular rate and rhythm without murmurs, rubs or gallops. ABDOMEN: Soft, nontender, normoactive bowel sounds. No guarding, no rebound. No masses appreciated. BACK: No CVA tenderness, no spinal tenderness, step-offs or deformities EXTREMITIES: Normal range of motion, no pitting or edema. No clubbing or cyanosis. NEUROLOGICAL: Cranial nerves II through XII grossly intact. Normal speech, normal gait. 5/5 strength, normal movement in all extremities, normal sensation , normal reflexes PSYCH: Answers questions appropriately, no suicidal homicidal ideation SKIN: Warm, dry, normal turgor, no visible rashes or lesions. (Kayode Carlos) Constitutional: Initial Vital Signs Temperature (C) 36.7 C 01/14/19 18:07 Heart Rate 95 01/14/19 18:07 Respiratory Rate 16 01/14/19 18:07 Blood Pressure 147/78 H 01/14/19 18:07 O2 Sat (%) 97 01/14/19 18:07 O2 Delivery Mode Room Air Allergies/Adverse Reactions: atenolol Allergy (Verified 01/14/19 18:29) hydromorphone [From Dilaudid] Allergy (Verified 01/14/19 18:29) sulfamethoxazole [From Bactrim] Allergy (Verified 01/14/19 18:29) trimethoprim [From Bactrim] Allergy (Verified 01/14/19 18:29) Home Medications: Medication Instructions Recorded Hydroxyzine HCl 06/05/17 Ondansetron Odt [Zofran Odt 4 mg 4 mg PO Q4 PRN #10 tab 06/05/17 (*)] Promethazine HCl 06/05/17 Propranolol HCl 06/05/17 Cephalexin [Keflex] 500 mg PO BID #10 cap 07/22/17 Ondansetron Odt [Zofran Odt 4 mg 4 mg PO Q4 PRN #20 tab 11/03/17 (RX)] Bupropion HCl [Wellbutrin Xl] 300 mg PO 01/14/19 Cyclobenzaprine [Flexeril 10 MG 10 mg PO 01/14/19 (*)] Fludrocortisone Acetate [Florinef 0.1 mg PO DAILY 01/14/19 0.1 MG (RX)] Gabapentin 800 mg PO 01/14/19 QUEtiapine FUMARATE [Seroquel 25 25 mg PO BID 01/14/19 mg (*)] Medical Decision Making ED Course/Re-evaluation: Patient accepted at [facility]. Patient signed out to me at the beginning of my shift, gravely disabled and was awaiting placement. Appropriate paperwork completed. (Vania Pierson) I spoke with our mental health electroplater is. This patient has been to the hospital multiple times requesting CTs and MRIs. I do not feel that these are warranted. They agree. She has not had any recent injury to her head. We will complete basic lab work and then clear for mental health placement as previously planned. 7:00 p.m. Patient medically cleared for mental health placement 9:00 p.m. Mental Health is looking for placement. Care transferred to Dr. Gilda Barroso at shift change. (Kayode Carlos) Differential Diagnosis: Partial list of the Differential diagnosis considered include but were not limited to; schizophrenia, bipolar, anxiety, PTSD and although unlikely based on the history and physical exam, I also considered head injury, infection. ( Kayode Carlos) Other Provider: [address] Barroso pending placement. [address] patient signed out to Dr. Pierson pending placement. No issues during my care this patient overnight. (Richie Toth) - Data Points Laboratory Results: Laboratory Results 01/14/19 18:25 01/14/19 18:25 Medications Given: Discontinued Medications Olanzapine (Olanzapine) 5 mg PO EDNOW ONE Stop: 01/15/19 09:25 Last Admin: 01/15/19 09:25 Dose: 5 mg Departure - Departure Disposition: Other Psych, Not [place] Clinical Impression: Acute psychosis Condition: Fair Referrals: NONE *PRIMARY CARE P,. [Primary Care Provider] - As per Instructions
[2019-01-14 18:45] LABS: PLATELET COUNT 430 10^3/uL (150-400)
[2019-01-15 08:28] VITALS: BP 135/87
[2019-01-15] MEDS ORDERED: OLANZapine 5 MG TAB PO ONE (09:24)
== END 2019-01-15 09:20 ==
LOC: EDUNIT#
DX: F23 Brief psychotic disorder (principal); F43.11 Post-traumatic stress disorder, acute
CPT/HCPCS: 80305; G0480

== ENCOUNTER 2019-02-11 11:02 | Inpatient (IN) | payer MEDICAID, OTHER ==
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
[2019-02-11 11:56] LABS: PLATELET COUNT 445 10^3/uL (150-400)
[2019-02-11] MEDS ORDERED: LORazepam 0.5 MG TAB PO ONE (12:56)
--- NOTE | 2019-02-11 14:34 | CPEKG ---
Test Reason : OPEN Blood Pressure : / mmHG Vent. Rate : 110 BPM Atrial Rate : 110 BPM P-R Int : 119 ms QRS Dur : 076 ms QT Int : 337 ms P-R-T Axes : 057 040 030 degrees QTc Int : 456 ms Sinus tachycardia Borderline T abnormalities, anterior leads Confirmed by Conrado Garcia ([id number]) on 02/11/2019 2:33:36 PM Referred By: Conrado Garcia Confirmed By:Conrado Garcia
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
--- NOTE | 2019-02-11 15:07 | ASMTTCLDSP ---
[facility] Discharge Disposition Disposition: Answers: Admit Discharge Concerns/Recommendations: Notes: In consultation with [facility] ED physician, Conrado Garcia MD and on-call psychiatrist, Suman Aguero MD, both concurred that pt appears to meet 27-65 criteria requiring psychiatric hospitalization as pt appears to be at risk of harm to gravely disabled due to a mental illness condition. Pt was read the Patient Rights and Responsibilities Statement on 02/11/2019 14:30), original placed on chart, and was given photocopy of Rights. Pt signed the Patient Rights. Pt was given the 3N prohibited belongings list while in the ED Was patient given the Answers: Yes Inpatient Behavioral Health Prohibited Belongings List while in the ED? For inpatient Suman Aguero MD admission, the following psychiatrist agreed to accept patient for admission to Behavioral Health ([facility]): Date Signed: 02/11/2019 03:06 PM Electronically Signed By:Azra Dao
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
[2019-02-11] MEDS ORDERED: MAGNESIUM HYDROXIDE 30 ML UDCUP PO PRN (16:20)
[2019-02-11] MEDS ORDERED: ACETAMINOPHEN 325 MG TAB PO PRN (16:20)
[2019-02-11] MEDS ORDERED: MAG HYDROX/AL HYDROX/SIMETH 30 ML UDCUP PO PRN (16:20)
[2019-02-11] MEDS ORDERED: NICOTINE POLACRILEX 2 MG GUM B PRN (16:20)
[2019-02-11] MEDS ORDERED: EPINEPHRINE 0.3 MG IJ PRN (16:22)
[2019-02-11] MEDS ORDERED: ALBUTEROL 60 PUFFS/8 GM MDI IH PRN (16:45)
[2019-02-11] MEDS: LORazepam 0.5 MG TAB PO PRN (20:13)
[2019-02-11] MEDS: QUEtiapine FUMARATE 100 MG TAB PO SCH (20:13)
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
[2019-02-12] MEDS: buPROPion XL 150 MG TAB PO SCH (08:20)
[2019-02-12] MEDS: CETIRIZINE 10 MG TAB PO SCH (08:20)
[2019-02-12] MEDS: FLUDROCORTISONE ACETATE 0.1 MG TAB PO SCH (08:25)
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
[2019-02-12] MEDS ORDERED: RISPERIDONE 1 MG ODT TAB SL ONE (10:24)
--- NOTE | 2019-02-12 14:52 | ASMTCMCOM ---
CM Note CM Note Notes: CC and other staff provided client with 24-hour notice in regards to [facility]. Client presented as compliant. Date Signed: 02/12/2019 02:51 PM Electronically Signed By:Ashwin Nicholson
[2019-02-12] MEDS: QUEtiapine FUMARATE 100 MG TAB PO SCH (19:55)
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
[2019-02-13] MEDS: buPROPion XL 150 MG TAB PO SCH (08:12)
[2019-02-13] MEDS: FLUDROCORTISONE ACETATE 0.1 MG TAB PO SCH (08:13)
[2019-02-13] MEDS: RISPERIDONE 2 MG ODT TAB SL SCH (08:13)
[2019-02-13] MEDS: CETIRIZINE 10 MG TAB PO SCH (08:13)
[2019-02-13] MEDS ORDERED: RISPERIDONE 1 MG ODT TAB SL SCH (09:00)
--- NOTE | 2019-02-13 14:22 | PDMN ---
Medical Necessity Medical necessity: Pt meets IP criteria per & EMELYN [id number]; est los >2 mn for eval/tx of severe major depressive disorder, unspecified psychosis, PTSD & generalized anxiety disorder; admit for further monitoring, safety, crisis stabilization & med management; per H&P & order 02/11/19
[2019-02-13] MEDS: LORazepam 0.5 MG TAB PO PRN (19:26)
[2019-02-13] MEDS ORDERED: QUEtiapine FUMARATE 50 MG TAB PO SCH (21:00)
[2019-02-14 06:19] VITALS: BP 124/69
--- NOTE | 2019-02-14 09:17 | SOAPPROG ---
SOAP Progress Note Assessment/Plan: Assessment: Unspecified Psychosis. PTSD. No improvement noted (see subjective/objective note). Currently on wait list for [facility]. Currently reviewing for medical clearance for admission at [facility]. No bed guaranteed for today. Patient is not safe to discharge at this time as patient continues to exhibit signs of psychosis, and express psychosis symptoms. Patient requires continued inpatient care because of current psychosis, and requires inpatient level of care to stabilize in order to no longer be gravely disabled due to mental illness. Patient exhibits persistent inability to perform essential function due to psychotic condition. Patient is unable to attend to ADLs appropriately and patient is unable to communicate basic needs. Patients support system has inability to manage functional impairment at lower level of care. Patient could benefit from continued inpatient hospitalization for crisis stabilization , safety, and medication evaluation. Plan: 1. Psychotropic medications: After reviewing options, risks, and benefits patient agrees to continue Risperidone 2 mg, and discontinue Wellbutrin and Seroquel. No other medication changes at this time as more time is needed to determine ongoing tolerability and efficacy. Patient was on Risperdal 4 mg po QD prior to admission, and tolerated with no report of side effects. Plan is to continue to observe patient for response and side effects from medications, and ongoing monitoring and evaluation. 2. Review with patient informed consent and recommendations for psychotropic medication treatment listed below 3. Labs: no additional labs at this time 4. Therapy: continue milieu and group therapy 5. Further investigation including gathering information from patients relatives and review of past case records to inform treatment plan. 6. Safety/Wellness plan and follow-up outpatient appointments to be established prior to discharge. Next steps are for patient to meet with physician assistant primary care to plan a safe discharge plan and establish outpatient services for ongoing treatment. 7. Confer with inpatient treatment team regarding treatment plan. 8. Psychosocial stressors addressed through correctional case manager 9. Legal status: M1; patient agrees to voluntary hospitalization 10. Consider discharge next week if patient is in stable condition, safe, and has a safe discharge plan. PSYCHOTROPIC MEDICATION TREATMENT INFORMED CONSENT and RECOMMENDATIONS: Review nature of condition, diagnosis, and prognosis. Review nature and purpose of psychotropic medication treatment. Review type of psychotropic medications being ordered. Review risk and benefits of psychotropic medication treatment. Review probable length of time patient will need to take medications. Review risk and benefits of not undergoing psychotropic medication treatment. Review alternative treatments to psychotropic medications. Review psychotropic medications contraindications, drug-drug interactions, side effects, and importance of reporting any side effects to a psychiatric provider or nurse during inpatient hospitalization, and upon discharge to patients psychiatric outpatient provider, primary care provider, or other health animal care attendant. Review importance of asking a nurse, psychiatric provider, or primary care provider any questions or problems concerning the psychotropic medications. Verify patient understands the information that has been provided, and understands, accepts, and agrees to psychotropic medications. Review patients safety plan and importance of patient to report to staff while hospitalized if patient is ever a danger to self/others, or unable to care for self, and upon discharge, the importance for patient to contact [facility] or [facility], or go to the nearest emergency room, if patient is ever a danger to self/others, or unable to care for self. Recommend that upon discharge patient establish medication management treatment with a psychiatric provider, establishes routine therapy appointments, and follow-up with primary care provider. Verify patient understands and agrees to these recommendations. 02/14/19 09:16 Subjective: Following up with patient for evaluation of psychosis and safety. Patient states, "I am really anxious. Was just told I have Celiac disease and I need to be seen right away. I think it might cause AIDS. I might . I don't know , just really scared." Patient reports no side effects from current medications , and agrees to continue current medications. Patient expresses severe anxiety. Patient agrees to discontinue Wellbutrin and Seroquel. Objective: Vital Signs Temp Pulse Resp BP Pulse Ox 36.6 C 99 15 124/69 H 94 02/14/19 06:00 02/14/19 06:00 02/14/19 06:00 02/14/19 06:00 02/14/19 06:00 NURSING REPORT: Consulted with nursing for update on patients progress in treatment. Nurses report patient is engaged in treatment, is attending some groups; slept 8 hours; expresses the following psychiatric symptoms: delusions, severe anxiety; exhibits the following psychiatric symptoms: anxious, disorganized, delusional; is agreeable to medications as prescribed with no report of side effects, no s/s of EPS/akathisia, and denies SI/HI, denies A/V hallucinations, and reports delusions. PATIENT CURRENTLY ON WAITLIST FOR [facility]: Report this AM. Not guaranteed a bed for today. Currently reviewing for medical clearance. MSE: The patient is a well-nourished female looking stated chronological age. Attire is appropriate dress is hospital garb. Grooming status is appropriate. Ambulation assisted by walker. Gait is normal and coordinated. Posture is normal. Eye contact is appropriate. Motor activity is appropriate with purposeful, organized, coordinated movements; with no involuntary movements. Attitude is cooperative. Patient appears distracted and does not relate well to this interviewer. Language production is spontaneous. Rate is pressured, latency of response is shortened, with appropriate volume, and anxious tone. Articulation is clear. Patient reports mood as okay with anxious affect. Patients thought process is non-linear and illogical. Patient does not report suicidal/homicidal thoughts, ideas, or plans. Patient denies auditory, visual hallucinations. Patient reports delusions. Patient does not appear to be attending to internal stimuli. Patients attention and concentration are poor. Patient is oriented to person, place, time. Patients insight is poor. Patients judgment is poor. - Time Spent With Patient Time Spent With Patient: 15 minutes, met with patient individually. - Pending Discharge Pending Discharge Within 24 Hours: No Pending Discharge Within 48 Hours: No ICD10 Worksheet Patient Problems: Problems Problem Status Onset Unspecified psychosis Acute PTSD (post-traumatic stress disorder) Chronic Urinary tract infection Acute
[2019-02-14] MEDS: FLUDROCORTISONE ACETATE 0.1 MG TAB PO SCH (11:41)
[2019-02-14] MEDS: RISPERIDONE 2 MG ODT TAB SL SCH (11:41)
[2019-02-14] MEDS: CETIRIZINE 10 MG TAB PO SCH (11:41)
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
== END 2019-02-14 16:15 | DRG 885 ==
LOC: EDUNIT# → EEVIPCON 11:02 → BBEH 16:00
PROVIDERS: ADMIT Psychiatry & Neurology Psychiatry; ATTEND Psychiatry & Neurology Psychiatry
DX: F29 Unspecified psychosis not due to a substance or known physiological condition (principal); F43.10 Post-traumatic stress disorder, unspecified; I49.8 Other specified cardiac arrhythmias; F41.1 Generalized anxiety disorder
CPT/HCPCS: 80305; G0480